=== PATIENT | female | born 1980 | race African-American/Black ===

== ENCOUNTER 2016-12-15 18:11 | Emergency (ER) | payer OTHER ==
[2016-12-15] MEDS ORDERED: KETOROLAC 30 MG/ML VIAL (J1885) As Ordered ONE (20:06)
[2016-12-15 20:12] LABS: BASO # 0.1 K/mm3 (0.0-0.2); BASO % 1.7 % (0.0-1.0); EOS # 0.4 K/mm3 (0.0-0.50); EOS % 4.6 % (0.0-3.0); LARGE UNSTAINED CELL # 0.2 K/mm3 (0.0-0.4); LARGE UNSTAINED CELL % 3.1 % (0.0-4.0); LYMPH # 3.1 K/mm3 (1.5-4.5); LYMPH % 36.1 % (24.0-44.0); MEAN CORPUSCULAR HEMOGLOBIN 28.1 pg (27.0-33.0); MEAN CORPUSCULAR HGB CONC 32.6 g/dl (32.0-36.5); MEAN CORPUSCULAR VOLUME 86.2 fl (80.0-96.0); MONO # 0.6 K/mm3 (0.0-0.8); MONO % 8.1 % (0.0-5.0); NEUTROPHILS # 3.7 K/mm3 (1.8-7.7); NEUTROPHILS % 46.4 % (36.0-66.0); PLATELET COUNT, AUTOMATED 319 k/mm3 (150-450); RED CELL DISTRIBUTION WIDTH 13.8 % (11.5-14.5); WHITE BLOOD COUNT 7.9 K/mm3 (4.0-10.0)
[2016-12-15 20:39] LABS: ALBUMIN/GLOBULIN RATIO 1.03 (1.00-1.93); ALKALINE PHOSPHATASE 97 U/L (45-117); ALT/SGPT 14 U/L (12-78); AMYLASE 91 U/L (25-115); ANION GAP 7 MEQ/L (8-16); AST/SGOT 16 U/L (15-37); BILIRUBIN,DIRECT < 0.1 MG/DL (0.0-0.2); BILIRUBIN,TOTAL 0.2 MG/DL (0.2-1.0); BLOOD UREA NITROGEN 14 MG/DL (7-18); CALCIUM LEVEL 9.4 MG/DL (8.5-10.1); CARBON DIOXIDE LEVEL 28 MEQ/L (21-32); CHLORIDE LEVEL 103 MEQ/L (98-107); GLOMERULAR FILTRATION RATE > 60.0 (>60); GLUCOSE, FASTING 86 MG/DL (70-105); POTASSIUM SERUM 3.9 MEQ/L (3.5-5.1); SODIUM LEVEL 138 MEQ/L (136-145); TOTAL PROTEIN 7.9 GM/DL (6.4-8.2)
[2016-12-15] MEDS ORDERED: ISOVUE-370 76% 100ML VIAL (Q9967) As Ordered ONE (20:46)
--- NOTE | 2016-12-15 21:10 | REPUSA ---
CT of the abdomen and pelvis with contrast Clinical statement: Pain. Technique: Multiple axial CT images were obtained from the base of the lungs through the floor of the pelvis utilizing 5 mm axial slices after administration of nonionic intravenous contrast. Coronal an d sagittal reconstructions were also obtained. No comparison is available. Findings: Chest: The visualized lung bases are clear. Abdomen: The liver, spleen, pancreas, kidneys, gallbladder, and adrenal glands are unremarkable. The aorta is within normal limits. There is no evidence of abdominal lymphadenopathy or ascites. Pelvis: The bowel is unremarkable, with no obstructive or inflammatory changes. The appendix is garrison l. The urinary bladder is within normal limits. The other pelvic structures appear grossly intact. Th ere is no evidence of pelvic lymphadenopathy or ascites. Bones: There are no suspicious osseous abnormalities seen. Impression: Unremarkable CT examination of the abdomen and pelvis.
[2016-12-15] MEDS ORDERED: traMADol 50 MG TAB As Ordered ONE (22:07)
--- NOTE | 2016-12-15 22:20 | EDDOCDS ---
Physician Documentation [facility] Name: Prerna Mccain Age: 36 yrs Sex: Female : 1980 Arrival Date: 12/15/2016 Time: 18:11 Bed I4 / M4 Private MD: Other - Complete Info On Cds Disposition: 12/15/16 22:02 Discharged to Home/Self Care. Impression: Lower abdominal pain, unspecified. - Condition is Stable. - Discharge Instructions: Abdominal Pain, Adult. - Prescriptions for Tramadol 50 mg Oral Tablet - take 1 tablet by ORAL route 4 times per day As needed MDD: 4 tabs; 16 tablet. - Medication Reconciliation, Local Pharmacy Hours form. - Follow up: mEelina Coulter [facility]; When: 2 - 3 days; Reason: Recheck today's complaints, Continuance of care. - Problem is new. - Symptoms have improved. - Notes: USE MEDICATION INSTRUTCED, FOLLOW UP WITH [facility] TOMORROW, RETURN TO THE ER IF THE SYMPTOMS WORSEN OR BECOME CONCERNING Historical: - Allergies: no known allergies; - Home Meds: 1. Protonix 40 mg Oral grps 2. Protonix 40 mg Oral TbEC 1 tab once daily - PMHx: gallbladder disease; - PSHx: none; - Social history: Smoking status: Patient/guardian denies using No barriers to communication noted, The patient speaks fluent [place]. - Family history: Not pertinent. - : The pt / caregiver states he / she is not on anticoagulants. Home medication list is obtained from the patient. - Exposure Risk Screening:: None identified. 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 (152.40 cm) (R); Pain 8/10; 22:16 BP 100 / 64; Pulse 84; Resp 18; Temp 97.9(O); Pulse Ox 98% on R/A; Pain 3/10; kb5 18:13 Body Mass Index 25.78 (59.87 kg, 152.40 cm) gr2 MDM: 18:59 UCG by Nursing ordered. ck7 19:00 Urine Culture Ordered. EDMS 19:00 UA Ordered. EDMS 19:37 UA Reviewed. ck7 19:38 Undress patient appropriately for examination ordered. ck7 19:38 IV Saline Lock ordered. ck7 19:38 NS 0.9% 1000 ml IV at bolus once ordered. ck7 19:39 Amylase Ordered. EDMS 19:39 Basic Metabolic Profile Ordered. EDMS 19:39 CBC with Diff Ordered. EDMS 19:39 Lipase Ordered. EDMS 19:39 Liver Profile Ordered. EDMS 19:40 NOTHING BY MOUTH+DIET ordered. EDMS 19:43 Financial registration complete. gjb 19:45 CT ABD & PELVIS: IV Contrast Only Ordered. EDMS 19:46 [facility] Payment Agreement was scanned into [employer] and attached to record. gjb 19:56 ketorolac 30 mg IVP once ordered. ck7 20:48 Basic Metabolic Profile Reviewed. ck7 20:48 CBC with Diff Reviewed. ck7 20:48 Amylase Reviewed. ck7 20:48 Lipase Reviewed. ck7 20:48 Liver Profile Reviewed. ck7 21:47 CT ABD & PELVIS: IV Contrast Only Reviewed. ck7 22:03 traMADol 50mg- 4 pack 1 packets PO Per package directions; Dispense with patient. Take ck7 per package instructions. ordered. Point of Care Testing: Urine : 19:13 hCG Reading: Negative; Control Reading: Positive; ar3 Ranges: Administered Medications: 20:04 Drug: NS 0.9% 1000 ml [sodium chloride 0.9 % intravenous solution] Route: IV; Rate: jmb bolus; Site: left antecubital; 20:09 Drug: ketorolac 30 mg [ketorolac 30 mg/mL (1 mL) injection solution (1 mL)] Route: IVP; jmb Site: left antecubital; Signatures: [facility] Neris Brito RN RN dls Kwaczala, Christopher, RPA-C RPA-CckSrini Da Silva RN RN jmb Beck, Gabriela gjb The chart was reviewed and I authenticate all verbal orders and agree with the evaluation and treatment provided.Attachments: 19:46 [facility] Payment Agreement gj MTDD
--- NOTE | 2016-12-15 22:20 | EDDOCDS ---
Nurse's Notes [facility] Name: Prerna Mccain Age: 36 yrs Sex: Female : 1980 Arrival Date: 12/15/2016 Time: 18:11 Bed I4 / M4 Private MD: Other - Complete Info On Cds Diagnosis: Lower abdominal pain, unspecified Presentation: 12/15 18:12 Presenting complaint:. dls 18:15 Presenting complaint: Patient states: pt presents with c/o lower abdominal pain lower dls back pain urinary frequency and breasts are tingling. Risk factors: the patient reports no vaginal bleeding. Adult Sepsis Screening: The patient does not have new or worsening altered mentation. Patient's respiratory rate is less than 22. Systolic blood pressure is greater than 100. Patient has a qSOFA score of 0- Negative Sepsis Screen. Suicide/Homicide risk assessment- the patient denies having any suicidal and/or homicidal ideations and does not present with any other emotional, behavioral or mental health complaints. 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 Transition of care: patient was not received from another setting of care. 18:15 Acuity: LI Level 3 dls 18:15 Method Of Arrival: Walkin/Carried/Asstd dls Triage Assessment: 18:18 General: Appears slender, uncomfortable, Behavior is cooperative. Pain: Pain currently dls is 7 out of 10 on a pain scale. HIV screening NA for this visit Offered previously. GI: Reports lower abdominal pain, nausea. 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 Protonix 40 mg Oral grps 2. Protonix 40 mg Oral TbEC 1 tab once daily - PMHx: gallbladder disease; - PSHx: none; - Social history: Smoking status: Patient/guardian denies using No barriers to communication noted, The patient speaks fluent [place]ian. - Family history: Not pertinent. - : The pt / caregiver states he / she is not on anticoagulants. Home medication list is obtained from the patient. - Exposure Risk Screening:: None identified. Screenin:04 Screening information is obtained from the patient. Fall risk: No risks identified. jmb Assistance ADL's: requires no assistance with activities of daily living. Abuse/DV Screen: The patient / caregiver reports he/she is: not in a situation that causes fear, pain or injury. Nutritional screening: No deficits noted. home support is adequate. 22:17 Advance Directives: Currently, there is no health care proxy. There is no active DNR jmb order. There is no living will. There is no Power of Train Operator. Assessment: 20:04 General: Appears in no apparent distress, comfortable, Behavior is appropriate for age, jmb cooperative. Pain: Location: abdomen Pain currently is 7 out of 10 on a pain scale. Neurological: Level of Consciousness is awake, alert, obeys commands, Oriented to person, place, time, Data Quality Consultant are equal bilaterally Speech is normal, Facial symmetry appears normal, Facial symmetry: tongue is midline. Cardiovascular: Capillary refill < 3 seconds Heart tones S1 S2 present Pulses are all present. Rhythm is regular. Respiratory: Airway is patent Respiratory effort is even, unlabored, Respiratory pattern is regular, symmetrical, Breath sounds are clear bilaterally. GI: Abdomen is non- distended Bowel sounds present X 4 quads. Abd is soft X 4 quads. Derm: Skin is normal. Musculoskeletal: Range of motion intact in all extremities. 21:26 General: Appears in no apparent distress, comfortable, Behavior is appropriate for age, jmb cooperative. Neurological: Level of Consciousness is awake, alert, obeys commands, Oriented to person, place, time. Respiratory: Airway is patent Respiratory effort is even, unlabored, Respiratory pattern is regular, symmetrical. 22:17 General: Patient instructed on discharge instructions. Patient asked if there were any jmb questions regarding discharge, patient stated no. IV discontinued per hospital policy. Patient signed discharge instructions. Patient discharged in stable condition. . Vital Signs: 18:13 BP 111 / 76; Pulse 89; Resp 18 S; Temp 98.6(O); Pulse Ox 100% on R/A; Weight 59.87 kg gr2 (R); Height 60 in. (152.40 cm) (R); Pain 8/10; 22:16 BP 100 / 64; Pulse 84; Resp 18; Temp 97.9(O); Pulse Ox 98% on R/A; Pain 3/10; kb5 18:13 Body Mass Index 25.78 (59.87 kg, 152.40 cm) gr2 Vitals: 18:13 Log In Time: December 15, 2016 at 18:13. gr2 ED Course: 18:12 Patient visited by Bertha Grant. gr2 18:12 Other - Complete Info On Cds is Private Physician. gr2 18:12 Patient moved to Waiting gr2 18:14 Patient visited by Bertha Grant. gr2 18:14 Patient moved to Pre RCE gr2 18:17 Triage Initiated dls 18:31 Patient moved to Triage 1 ms18 18:53 Pritesh Dunn RPA-C is PHCP. ck7 18:53 Cuate Mendoza MD is Attending Physician. ck7 18:53 Patient visited by Pritesh Dunn RPA-C. ck7 19:07 Patient moved to TR3 ar3 19:07 Urine Culture Sent. ar3 19:07 UA Sent. ar3 19:13 Patient visited by Narda Mixon PCA. ar3 19:38 Patient moved to I4 / M4 ms18 19:43 Patient visited by Pritesh Dunn RPA-C. ck7 19:46 [facility] Payment Agreement was scanned into [employer] and attached to record. gjb 20:04 The patient / caregiver is instructed regarding the plan of care and ED course. jmb 20:04 Amylase Sent. jmb 20:04 CBC with Diff Sent. jmb 20:04 Basic Metabolic Profile Sent. jmb 20:04 Lipase Sent. jmb 20:04 Liver Profile Sent. jmb 20:04 Inserted saline lock: 20 gauge in left antecubital area and blood collected. The jmb patient tolerated the procedure well. Labs drawn. (by ED staff). Sent per order to lab. Urine collected. Clean catch specimen. 20:06 Patient visited by Srini Michel RN. jmb 20:41 Patient visited by Pritesh Dunn RPA-C. ck7 20:[address] jmb 20:56 Patient moved to I4 / M4 jmb 21:26 Patient visited by Srini Michel RN. jmb 21:41 CT ABD & PELVIS: IV Contrast Only Returned. EDMS 21:59 Patient visited by Pritesh Dunn RPA-C. ck7 22:02 Emelina Coulter [facility] is Referral Physician. ck7 22:17 Patient visited by Jc Borja PCA. kb5 22:17 Discontinued lock intact, bleeding controlled, pressure dressing applied, No jmb redness/swelling at site. No procedures done that require assistance. Administered Medications: 20:04 Drug: NS 0.9% 1000 ml [sodium chloride 0.9 % intravenous solution] Route: IV; Rate: jmb bolus; Site: left antecubital; 20:09 Drug: ketorolac 30 mg [ketorolac 30 mg/mL (1 mL) injection solution (1 mL)] Route: IVP; jmb Site: left antecubital; Point of Care Testing: Urine : 19:13 hCG Reading: Negative; Control Reading: Positive; ar3 Ranges: Order Results: Lab Order: UA; SPEC'M 12/15/16 19:07 Test: APPEARANCE, URINE; Value: CLEAR; Range: CLEAR; Status: F Test: COLOR, URINE; Value: YELLOW; Range: YELLOW; Status: F Test: PH,URINE; Value: 5.0; Range: 5.0-9.0; Units: UNITS; Status: F Test: SPECIFIC GRAVITY URINE AUTO; Value: 1.015; Range: 1.002-1.035; Status: F Test: PROTEIN, URINE AUTO; Value: NEGATIVE; Range: NEGATIVE; Units: mg/dL; Status: F Test: GLUCOSE, URINE (UA) AUTO; Value: NEGATIVE; Range: NEGATIVE; Units: mg/dL; Status: F Test: KETONE, URINE AUTO; Value: NEGATIVE; Range: NEGATIVE; Units: mg/dL; Status: F Test: UROBILINOGEN, URINE AUTO; Value: 0.2; Range: 0.0-2.0; Units: mg/dL; Status: F Test: BILIRUBIN, URINE AUTO; Value: NEGATIVE; Range: NEGATIVE; Status: F Test: NITRITE, URINE AUTO; Value: NEGATIVE; Range: NEGATIVE; Status: F Test: LEUKOCYTE ESTERASE, URINE AUTO; Value: NEGATIVE; Range: NEGATIVE; Status: F Test: BLOOD, URINE BLOOD; Value: NEGATIVE; Range: NEGATIVE; Status: F Test: WBC, URINE AUTO; Value: 0; Range: 0-3; Units: /HPF; Status: F Test: RBC, URINE AUTO; Value: 3; Range: 0-3; Units: /HPF; Status: F Test: BACTERIA, URINE AUTO; Value: 1+; Range: NEGATIVE; Abnormal: Above high normal; Status: F Test: SQUAMOUS EPITHELIAL CELL UR AU; Value: 0; Range: 0-6; Units: /HPF; Status: F Test: MUCUS, URINE; Value: SMALL; Range: NEGATIVE; Status: F Test: HYALINE CAST, URINE AUTO; Value: 0; Range: 0-1; Units: /LPF; Status: F Lab Order: Amylase; SPEC'M 12/15/16 19:57 Test: AMYLASE; Value: 91; Range: 25-115; Units: U/L; Status: F Lab Order: Basic Metabolic Profile; SPEC'M 12/15/16 19:57 Test: GLUCOSE, FASTING; Value: 86; Range: 70-105; Units: MG/DL; Status: F Test: BLOOD UREA NITROGEN; Value: 14; Range: 7-18; Units: MG/DL; Status: F Test: CREATININE FOR GFR; Value: 0.90; Range: 0.55-1.02; Units: MG/DL; Status: F Test: GLOMERULAR FILTRATION RATE; Value: > 60.0; Range: >60; Status: F Test: SODIUM LEVEL; Value: 138; Range: 136-145; Units: MEQ/L; Status: F Test: POTASSIUM SERUM; Value: 3.9; Range: 3.5-5.1; Units: MEQ/L; Status: F Test: CHLORIDE LEVEL; Value: 103; Range: 98-107; Units: MEQ/L; Status: F Test: CARBON DIOXIDE LEVEL; Value: 28; Range: 21-32; Units: MEQ/L; Status: F Test: ANION GAP; Value: 7; Range: 8-16; Abnormal: Below low normal; Units: MEQ/L; Status: F Test: CALCIUM LEVEL; Value: 9.4; Range: 8.5-10.1; Units: MG/DL; Status: F Test Note: ; Units are mL/min/1.73 m2 Chronic Kidney Disease Staging per NKF: Stage I & II GFR >=60 Normal to Mildly Decreased Stage III GFR 30-59 Moderately Decreased Stage IV GFR 15-29 Severely Decreased Stage V GFR <15 Very Little GFR Left ESRD GFR <15 on [employer] Lab Order: CBC with Diff; SPEC'M 12/15/16 19:57 Test: WHITE BLOOD COUNT; Value: 7.9; Range: 4.0-10.0; Units: K/mm3; Status: F Test: RED BLOOD COUNT; Value: 4.68; Range: 4.00-5.40; Units: M/mm3; Status: F Test: HEMOGLOBIN; Value: 13.2; Range: 12.0-16.0; Units: g/dl; Status: F Test: HEMATOCRIT; Value: 40.3; Range: 36.0-47.0; Units: %; Status: F Test: MEAN CORPUSCULAR VOLUME; Value: 86.2; Range: 80.0-96.0; Units: fl; Status: F Test: MEAN CORPUSCULAR HEMOGLOBIN; Value: 28.1; Range: 27.0-33.0; Units: pg; Status: F Test: MEAN CORPUSCULAR HGB CONC; Value: 32.6; Range: 32.0-36.5; Units: g/dl; Status: F Test: RED CELL DISTRIBUTION WIDTH; Value: 13.8; Range: 11.5-14.5; Units: %; Status: F Test: PLATELET COUNT, AUTOMATED; Value: 319; Range: 150-450; Units: k/mm3; Status: F Test: NEUTROPHILS %; Value: 46.4; Range: 36.0-66.0; Units: %; Status: F Test: LYMPH %; Value: 36.1; Range: 24.0-44.0; Units: %; Status: F Test: MONO %; Value: 8.1; Range: 0.0-5.0; Abnormal: Above high normal; Units: %; Status: F Test: EOS %; Value: 4.6; Range: 0.0-3.0; Abnormal: Above high normal; Units: %; Status: F Test: BASO %; Value: 1.7; Range: 0.0-1.0; Abnormal: Above high normal; Units: %; Status: F Test: LARGE UNSTAINED CELL %; Value: 3.1; Range: 0.0-4.0; Units: %; Status: F Test: NEUTROPHILS #; Value: 3.7; Range: 1.8-7.7; Units: K/mm3; Status: F Test: LYMPH #; Value: 3.1; Range: 1.5-4.5; Units: K/mm3; Status: F Test: MONO #; Value: 0.6; Range: 0.0-0.8; Units: K/mm3; Status: F Test: EOS #; Value: 0.4; Range: 0.0-0.50; Units: K/mm3; Status: F Test: BASO #; Value: 0.1; Range: 0.0-0.2; Units: K/mm3; Status: F Test: LARGE UNSTAINED CELL #; Value: 0.2; Range: 0.0-0.4; Units: K/mm3; Status: F Lab Order: Lipase; SPEC'M 12/15/16 19:57 Test: LIPASE; Value: 201; Range: 73-393; Units: U/L; Status: F Lab Order: Liver Profile; SPEC'M 12/15/16 19:57 Test: AST/SGOT; Value: 16; Range: 15-37; Units: U/L; Status: F Test: ALT/SGPT; Value: 14; Range: 12-78; Units: U/L; Status: F Test: ALKALINE PHOSPHATASE; Value: 97; Range: 45-117; Units: U/L; Status: F Test: BILIRUBIN,TOTAL; Value: 0.2; Range: 0.2-1.0; Units: MG/DL; Status: F Test: BILIRUBIN,DIRECT; Value: < 0.1; Range: 0.0-0.2; Units: MG/DL; Status: F Test: TOTAL PROTEIN; Value: 7.9; Range: 6.4-8.2; Units: GM/DL; Status: F Test: ALBUMIN; Value: 4.0; Range: 3.2-5.2; Units: GM/DL; Status: F Test: ALBUMIN/GLOBULIN RATIO; Value: 1.03; Range: 1.00-1.93; Status: F Radiology Order: CT ABD & PELVIS: IV Contrast Only Test: CT ABD & PELVIS: IV Contrast Only REASON FOR EXAMINATION: Abdomen Pain; ; CT of the abdomen and pelvis with contrast; Clinical statement: Pain.; Technique: Multiple axial CT images were obtained from the base of the lungs through the floor of the; pelvis utilizing 5 mm axial slices after administration of nonionic intravenous contrast. Coronal an; d sagittal reconstructions were also obtained.; No comparison is available.; Findings:; Chest: The visualized lung bases are clear.; Abdomen: The liver, spleen, pancreas, kidneys, gallbladder, and adrenal glands are unremarkable. The; aorta is within normal limits. There is no evidence of abdominal lymphadenopathy or ascites.; Pelvis: The bowel is unremarkable, with no obstructive or inflammatory changes. The appendix is garrison; l. The urinary bladder is within normal limits. The other pelvic structures appear grossly intact. Th; ere is no evidence of pelvic lymphadenopathy or ascites.; Bones: There are no suspicious osseous abnormalities seen.; Impression: Unremarkable CT examination of the abdomen and pelvis.; ; Outcome: 22:02 Discharge ordered by Provider. ck7 22:17 Discharge Assessment: Patient awake, alert and oriented x 3. No cognitive and/or jmb functional deficits noted. Patient verbalized understanding of disposition instructions. Patient awake and alert. obeys commands, Oriented to person, place and time. Patient verbalized understanding of disposition instructions. Patient has no functional deficits. patient administered narcotics - no. The following High Risk Discharge criteria are identified: None. Discharged to home ambulatory. Condition: stable Condition: improved. Discharge instructions given to patient, Instructed on discharge instructions, follow up and referral plans. medication usage, Demonstrated understanding of instructions, medications, Pt was receptive of discharge instructions/ teaching. Prescriptions given X 1. CT Study completed. Property sent home with patient. 22:19 Patient left the ED. liz Signatures: Dispatcher [employer] EDMS Neris Brito, Jc Castle RN, VIDEO PHOTOGRAPHER VIDEO PHOTOGRAPHER kb5 Narda Mixon, VIDEO PHOTOGRAPHER VIDEO PHOTOGRAPHER ar3 Pritesh Dunn, RPA-C [id number] Bertha Grant gr2 Srini Michel RN RN jmb Smith, Mallory, RN RN ms18 Enriqueta Abdullahi MTDD
--- NOTE | 2016-12-17 23:20 | EDDOCDS ---
Nurse's Notes [facility] Name: Prerna Mccain Age: 36 yrs Sex: Female : 1980 Arrival Date: 12/15/2016 Time: 18:11 Bed I4 / M4 Private MD: Other - Complete Info On Cds Diagnosis: Lower abdominal pain, unspecified Presentation: 12/15 18:12 Presenting complaint:. dls 18:15 Presenting complaint: Patient states: pt presents with c/o lower abdominal pain lower dls back pain urinary frequency and breasts are tingling. Risk factors: the patient reports no vaginal bleeding. Adult Sepsis Screening: The patient does not have new or worsening altered mentation. Patient's respiratory rate is less than 22. Systolic blood pressure is greater than 100. Patient has a qSOFA score of 0- Negative Sepsis Screen. Suicide/Homicide risk assessment- the patient denies having any suicidal and/or homicidal ideations and does not present with any other emotional, behavioral or mental health complaints. 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 Transition of care: patient was not received from another setting of care. 18:15 Acuity: LI Level 3 dls 18:15 Method Of Arrival: Walkin/Carried/Asstd dls Triage Assessment: 18:18 General: Appears slender, uncomfortable, Behavior is cooperative. Pain: Pain currently dls is 7 out of 10 on a pain scale. HIV screening NA for this visit Offered previously. GI: Reports lower abdominal pain, nausea. 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 Protonix 40 mg Oral grps 2. Protonix 40 mg Oral TbEC 1 tab once daily - PMHx: gallbladder disease; - PSHx: none; - Social history: Smoking status: Patient/guardian denies using No barriers to communication noted, The patient speaks fluent Mauritanian. - Family history: Not pertinent. - : The pt / caregiver states he / she is not on anticoagulants. Home medication list is obtained from the patient. - Exposure Risk Screening:: None identified. Screenin:04 Screening information is obtained from the patient. Fall risk: No risks identified. jmb Assistance ADL's: requires no assistance with activities of daily living. Abuse/DV Screen: The patient / caregiver reports he/she is: not in a situation that causes fear, pain or injury. Nutritional screening: No deficits noted. home support is adequate. 22:17 Advance Directives: Currently, there is no health care proxy. There is no active DNR jmb order. There is no living will. There is no Power of Client Support Analyst. Assessment: 20:04 General: Appears in no apparent distress, comfortable, Behavior is appropriate for age, jmb cooperative. Pain: Location: abdomen Pain currently is 7 out of 10 on a pain scale. Neurological: Level of Consciousness is awake, alert, obeys commands, Oriented to person, place, time, Music Intern are equal bilaterally Speech is normal, Facial symmetry appears normal, Facial symmetry: tongue is midline. Cardiovascular: Capillary refill < 3 seconds Heart tones S1 S2 present Pulses are all present. Rhythm is regular. Respiratory: Airway is patent Respiratory effort is even, unlabored, Respiratory pattern is regular, symmetrical, Breath sounds are clear bilaterally. GI: Abdomen is non- distended Bowel sounds present X 4 quads. Abd is soft X 4 quads. Derm: Skin is normal. Musculoskeletal: Range of motion intact in all extremities. 21:26 General: Appears in no apparent distress, comfortable, Behavior is appropriate for age, jmb cooperative. Neurological: Level of Consciousness is awake, alert, obeys commands, Oriented to person, place, time. Respiratory: Airway is patent Respiratory effort is even, unlabored, Respiratory pattern is regular, symmetrical. 22:17 General: Patient instructed on discharge instructions. Patient asked if there were any jmb questions regarding discharge, patient stated no. IV discontinued per hospital policy. Patient signed discharge instructions. Patient discharged in stable condition. . Vital Signs: 18:13 BP 111 / 76; Pulse 89; Resp 18 S; Temp 98.6(O); Pulse Ox 100% on R/A; Weight 59.87 kg gr2 (R); Height 60 in. (152.40 cm) (R); Pain 8/10; 22:16 BP 100 / 64; Pulse 84; Resp 18; Temp 97.9(O); Pulse Ox 98% on R/A; Pain 3/10; kb5 18:13 Body Mass Index 25.78 (59.87 kg, 152.40 cm) gr2 Vitals: 18:13 Log In Time: December 15, 2016 at 18:13. gr2 ED Course: 18:12 Patient visited by Bertha Grant. gr2 18:12 Other - Complete Info On Cds is Private Physician. gr2 18:12 Patient moved to Waiting gr2 18:14 Patient visited by Bertha Grant. gr2 18:14 Patient moved to Pre RCE gr2 18:17 Triage Initiated dls 18:31 Patient moved to Triage 1 ms18 18:53 Pritesh Dunn RPA-C is PHCP. ck7 18:53 Cuate Mendoza MD is Attending Physician. ck7 18:53 Patient visited by Pritesh Dunn RPA-C. ck7 19:07 Patient moved to TR3 ar3 19:07 Urine Culture Sent. ar3 19:07 UA Sent. ar3 19:13 Patient visited by Narda Mixon PCA. ar3 19:38 Patient moved to I4 / M4 ms18 19:43 Patient visited by Pritesh Dunn RPA-C. ck7 19:46 [facility] Payment Agreement was scanned into [employer] and attached to record. gjb 20:04 The patient / caregiver is instructed regarding the plan of care and ED course. jmb 20:04 Amylase Sent. jmb 20:04 CBC with Diff Sent. jmb 20:04 Basic Metabolic Profile Sent. jmb 20:04 Lipase Sent. jmb 20:04 Liver Profile Sent. jmb 20:04 Inserted saline lock: 20 gauge in left antecubital area and blood collected. The jmb patient tolerated the procedure well. Labs drawn. (by ED staff). Sent per order to lab. Urine collected. Clean catch specimen. 20:06 Patient visited by Srini Michel RN. jmb 20:41 Patient visited by Pritesh Dunn RPA-C. ck7 20:[address] jmb 20:56 Patient moved to I4 / M4 jmb 21:26 Patient visited by Srini Michel RN. jmb 21:41 CT ABD & PELVIS: IV Contrast Only Returned. EDMS 21:59 Patient visited by Pritesh Dunn RPA-C. ck7 22:02 Emelina Coulter [facility] is Referral Physician. ck7 22:17 Patient visited by Jc Borja PCA. kb5 22:17 Discontinued lock intact, bleeding controlled, pressure dressing applied, No jmb redness/swelling at site. No procedures done that require assistance. 12/16 09:41 T-Sheet-- Draft Copy was scanned into [employer] and attached to record. gb 09:41 Radiology Report was scanned into Voltari and attached to record. gb Administered Medications: 12/15 20:04 Drug: NS 0.9% 1000 ml [sodium chloride 0.9 % intravenous solution] Route: IV; Rate: jmb bolus; Site: left antecubital; 20:09 Drug: ketorolac 30 mg [ketorolac 30 mg/mL (1 mL) injection solution (1 mL)] Route: IVP; jmb Site: left antecubital; Point of Care Testing: Urine : 19:13 hCG Reading: Negative; Control Reading: Positive; ar3 Ranges: Order Results: Lab Order: UA; SPEC'M 12/15/16 19:07 Test: APPEARANCE, URINE; Value: CLEAR; Range: CLEAR; Status: F Test: COLOR, URINE; Value: YELLOW; Range: YELLOW; Status: F Test: PH,URINE; Value: 5.0; Range: 5.0-9.0; Units: UNITS; Status: F Test: SPECIFIC GRAVITY URINE AUTO; Value: 1.015; Range: 1.002-1.035; Status: F Test: PROTEIN, URINE AUTO; Value: NEGATIVE; Range: NEGATIVE; Units: mg/dL; Status: F Test: GLUCOSE, URINE (UA) AUTO; Value: NEGATIVE; Range: NEGATIVE; Units: mg/dL; Status: F Test: KETONE, URINE AUTO; Value: NEGATIVE; Range: NEGATIVE; Units: mg/dL; Status: F Test: UROBILINOGEN, URINE AUTO; Value: 0.2; Range: 0.0-2.0; Units: mg/dL; Status: F Test: BILIRUBIN, URINE AUTO; Value: NEGATIVE; Range: NEGATIVE; Status: F Test: NITRITE, URINE AUTO; Value: NEGATIVE; Range: NEGATIVE; Status: F Test: LEUKOCYTE ESTERASE, URINE AUTO; Value: NEGATIVE; Range: NEGATIVE; Status: F Test: BLOOD, URINE BLOOD; Value: NEGATIVE; Range: NEGATIVE; Status: F Test: WBC, URINE AUTO; Value: 0; Range: 0-3; Units: /HPF; Status: F Test: RBC, URINE AUTO; Value: 3; Range: 0-3; Units: /HPF; Status: F Test: BACTERIA, URINE AUTO; Value: 1+; Range: NEGATIVE; Abnormal: Above high normal; Status: F Test: SQUAMOUS EPITHELIAL CELL UR AU; Value: 0; Range: 0-6; Units: /HPF; Status: F Test: MUCUS, URINE; Value: SMALL; Range: NEGATIVE; Status: F Test: HYALINE CAST, URINE AUTO; Value: 0; Range: 0-1; Units: /LPF; Status: F Lab Order: Urine Culture; [facility] 12/15/16 19:07 Test: URINE CULTURE; Value: <EXTERNAL COMMENT eCWMed> FULL REPORT IN LAB NOTES (eCW and Medent).; Status: F Test: URINE CULTURE; Value: URINE CULTURE RESULT NO GROWTH; Status: F Lab Order: Amylase; [facility] 12/15/16 19:57 Test: AMYLASE; Value: 91; Range: 25-115; Units: U/L; Status: F Lab Order: Basic Metabolic Profile; [facility] 12/15/16 19:57 Test: GLUCOSE, FASTING; Value: 86; Range: 70-105; Units: MG/DL; Status: F Test: BLOOD UREA NITROGEN; Value: 14; Range: 7-18; Units: MG/DL; Status: F Test: CREATININE FOR GFR; Value: 0.90; Range: 0.55-1.02; Units: MG/DL; Status: F Test: GLOMERULAR FILTRATION RATE; Value: > 60.0; Range: >60; Status: F Test: SODIUM LEVEL; Value: 138; Range: 136-145; Units: MEQ/L; Status: F Test: POTASSIUM SERUM; Value: 3.9; Range: 3.5-5.1; Units: MEQ/L; Status: F Test: CHLORIDE LEVEL; Value: 103; Range: 98-107; Units: MEQ/L; Status: F Test: CARBON DIOXIDE LEVEL; Value: 28; Range: 21-32; Units: MEQ/L; Status: F Test: ANION GAP; Value: 7; Range: 8-16; Abnormal: Below low normal; Units: MEQ/L; Status: F Test: CALCIUM LEVEL; Value: 9.4; Range: 8.5-10.1; Units: MG/DL; Status: F Test Note: ; Units are mL/min/1.73 m2 Chronic Kidney Disease Staging per NKF: Stage I & II GFR >=60 Normal to Mildly Decreased Stage III GFR 30-59 Moderately Decreased Stage IV GFR 15-29 Severely Decreased Stage V GFR <15 Very Little GFR Left ESRD GFR <15 on GEAR TECHNICIAN Lab Order: CBC with Diff; SPEC'M 12/15/16 19:57 Test: WHITE BLOOD COUNT; Value: 7.9; Range: 4.0-10.0; Units: K/mm3; Status: F Test: RED BLOOD COUNT; Value: 4.68; Range: 4.00-5.40; Units: M/mm3; Status: F Test: HEMOGLOBIN; Value: 13.2; Range: 12.0-16.0; Units: g/dl; Status: F Test: HEMATOCRIT; Value: 40.3; Range: 36.0-47.0; Units: %; Status: F Test: MEAN CORPUSCULAR VOLUME; Value: 86.2; Range: 80.0-96.0; Units: fl; Status: F Test: MEAN CORPUSCULAR HEMOGLOBIN; Value: 28.1; Range: 27.0-33.0; Units: pg; Status: F Test: MEAN CORPUSCULAR HGB CONC; Value: 32.6; Range: 32.0-36.5; Units: g/dl; Status: F Test: RED CELL DISTRIBUTION WIDTH; Value: 13.8; Range: 11.5-14.5; Units: %; Status: F Test: PLATELET COUNT, AUTOMATED; Value: 319; Range: 150-450; Units: k/mm3; Status: F Test: NEUTROPHILS %; Value: 46.4; Range: 36.0-66.0; Units: %; Status: F Test: LYMPH %; Value: 36.1; Range: 24.0-44.0; Units: %; Status: F Test: MONO %; Value: 8.1; Range: 0.0-5.0; Abnormal: Above high normal; Units: %; Status: F Test: EOS %; Value: 4.6; Range: 0.0-3.0; Abnormal: Above high normal; Units: %; Status: F Test: BASO %; Value: 1.7; Range: 0.0-1.0; Abnormal: Above high normal; Units: %; Status: F Test: LARGE UNSTAINED CELL %; Value: 3.1; Range: 0.0-4.0; Units: %; Status: F Test: NEUTROPHILS #; Value: 3.7; Range: 1.8-7.7; Units: K/mm3; Status: F Test: LYMPH #; Value: 3.1; Range: 1.5-4.5; Units: K/mm3; Status: F Test: MONO #; Value: 0.6; Range: 0.0-0.8; Units: K/mm3; Status: F Test: EOS #; Value: 0.4; Range: 0.0-0.50; Units: K/mm3; Status: F Test: BASO #; Value: 0.1; Range: 0.0-0.2; Units: K/mm3; Status: F Test: LARGE UNSTAINED CELL #; Value: 0.2; Range: 0.0-0.4; Units: K/mm3; Status: F Lab Order: Lipase; [facility] 12/15/16 19:57 Test: LIPASE; Value: 201; Range: 73-393; Units: U/L; Status: F Lab Order: Liver Profile; [facility] 12/15/16 19:57 Test: AST/SGOT; Value: 16; Range: 15-37; Units: U/L; Status: F Test: ALT/SGPT; Value: 14; Range: 12-78; Units: U/L; Status: F Test: ALKALINE PHOSPHATASE; Value: 97; Range: 45-117; Units: U/L; Status: F Test: BILIRUBIN,TOTAL; Value: 0.2; Range: 0.2-1.0; Units: MG/DL; Status: F Test: BILIRUBIN,DIRECT; Value: < 0.1; Range: 0.0-0.2; Units: MG/DL; Status: F Test: TOTAL PROTEIN; Value: 7.9; Range: 6.4-8.2; Units: GM/DL; Status: F Test: ALBUMIN; Value: 4.0; Range: 3.2-5.2; Units: GM/DL; Status: F Test: ALBUMIN/GLOBULIN RATIO; Value: 1.03; Range: 1.00-1.93; Status: F Radiology Order: CT ABD & PELVIS: IV Contrast Only Test: CT ABD & PELVIS: IV Contrast Only REASON FOR EXAMINATION: Abdomen Pain; ; CT of the abdomen and pelvis with contrast; Clinical statement: Pain.; Technique: Multiple axial CT images were obtained from the base of the lungs through the floor of the; pelvis utilizing 5 mm axial slices after administration of nonionic intravenous contrast. Coronal an; d sagittal reconstructions were also obtained.; No comparison is available.; Findings:; Chest: The visualized lung bases are clear.; Abdomen: The liver, spleen, pancreas, kidneys, gallbladder, and adrenal glands are unremarkable. The; aorta is within normal limits. There is no evidence of abdominal lymphadenopathy or ascites.; Pelvis: The bowel is unremarkable, with no obstructive or inflammatory changes. The appendix is garrison; l. The urinary bladder is within normal limits. The other pelvic structures appear grossly intact. Th; ere is no evidence of pelvic lymphadenopathy or ascites.; Bones: There are no suspicious osseous abnormalities seen.; Impression: Unremarkable CT examination of the abdomen and pelvis.; ; Outcome: 22:02 Discharge ordered by Provider. ck7 22:17 Discharge Assessment: Patient awake, alert and oriented x 3. No cognitive and/or jmb functional deficits noted. Patient verbalized understanding of disposition instructions. Patient awake and alert. obeys commands, Oriented to person, place and time. Patient verbalized understanding of disposition instructions. Patient has no functional deficits. patient administered narcotics - no. The following High Risk Discharge criteria are identified: None. Discharged to home ambulatory. Condition: stable Condition: improved. Discharge instructions given to patient, Instructed on discharge instructions, follow up and referral plans. medication usage, Demonstrated understanding of instructions, medications, Pt was receptive of discharge instructions/ teaching. Prescriptions given X 1. CT Study completed. Property sent home with patient. 22:19 Patient left the ED. jmb Signatures: Dispatcher [employer] EDMS Neris Brito RN RN Pebbles Smallwood, Reg Reg gb Jc Borja, LOGISTICS INTERN LOGISTICS INTERN kb5 Narda Mixon, LOGISTICS INTERN LOGISTICS INTERN ar3 Pritesh Dunn, RPA-C RPA-Cck7 Bertha Grant gr2 Srini Michel,RN RN jmb Maryanne De La Garza RN RN [id number] Enriqueta Abdullahi Chart Complete MTDD
--- NOTE | 2016-12-17 23:20 | EDDOCDS ---
Physician Documentation [facility] Name: Prerna Mccain Age: 36 yrs Sex: Female : 1980 Arrival Date: 12/15/2016 Time: 18:11 Bed I4 / M4 Private MD: Other - Complete Info On Cds Disposition: 12/15/16 22:02 Discharged to Home/Self Care. Impression: Lower abdominal pain, unspecified. - Condition is Stable. - Discharge Instructions: Abdominal Pain, Adult. - Prescriptions for Tramadol 50 mg Oral Tablet - take 1 tablet by ORAL route 4 times per day As needed MDD: 4 tabs; 16 tablet. - Medication Reconciliation, Local Pharmacy Hours form. - Follow up: Emelina Coulter [facility]; When: 2 - 3 days; Reason: Recheck today's complaints, Continuance of care. - Problem is new. - Symptoms have improved. - Notes: USE MEDICATION INSTRUTCED, FOLLOW UP WITH [facility] TOMORROW, RETURN TO THE ER IF THE SYMPTOMS WORSEN OR BECOME CONCERNING Historical: - Allergies: no known allergies; - Home Meds: 1. Protonix 40 mg Oral grps 2. Protonix 40 mg Oral TbEC 1 tab once daily - PMHx: gallbladder disease; - PSHx: none; - Social history: Smoking status: Patient/guardian denies using No barriers to communication noted, The patient speaks fluent German. - Family history: Not pertinent. - : The pt / caregiver states he / she is not on anticoagulants. Home medication list is obtained from the patient. - Exposure Risk Screening:: None identified. 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 (152.40 cm) (R); Pain 8/10; 22:16 BP 100 / 64; Pulse 84; Resp 18; Temp 97.9(O); Pulse Ox 98% on R/A; Pain 3/10; kb5 18:13 Body Mass Index 25.78 (59.87 kg, 152.40 cm) gr2 MDM: 18:59 UCG by Nursing ordered. ck7 19:00 Urine Culture Ordered. EDMS 19:00 UA Ordered. EDMS 19:37 UA Reviewed. ck7 19:38 Undress patient appropriately for examination ordered. ck7 19:38 IV Saline Lock ordered. ck7 19:38 NS 0.9% 1000 ml IV at bolus once ordered. ck7 19:39 Amylase Ordered. EDMS 19:39 Basic Metabolic Profile Ordered. EDMS 19:39 CBC with Diff Ordered. EDMS 19:39 Lipase Ordered. EDMS 19:39 Liver Profile Ordered. EDMS 19:40 NOTHING BY MOUTH+DIET ordered. EDMS 19:43 Financial registration complete. gjb 19:45 CT ABD & PELVIS: IV Contrast Only Ordered. EDMS 19:46 [facility] Payment Agreement was scanned into [employer] and attached to record. gjb 19:56 ketorolac 30 mg IVP once ordered. ck7 20:48 Basic Metabolic Profile Reviewed. ck7 20:48 CBC with Diff Reviewed. ck7 20:48 Amylase Reviewed. ck7 20:48 Lipase Reviewed. ck7 20:48 Liver Profile Reviewed. ck7 21:47 CT ABD & PELVIS: IV Contrast Only Reviewed. ck7 22:03 traMADol 50mg- 4 pack 1 packets PO Per package directions; Dispense with patient. Take ck7 per package instructions. ordered. 12/16 09:41 T-Sheet-- Draft Copy was scanned into [employer] and attached to record. 09:41 Radiology Report was scanned into [employer] and attached to record. Point of Care Testing: Urine : 12/15 19:13 hCG Reading: Negative; Control Reading: Positive; ar3 Ranges: Administered Medications: 20:04 Drug: NS 0.9% 1000 ml [sodium chloride 0.9 % intravenous solution] Route: IV; Rate: jmb bolus; Site: left antecubital; 20:09 Drug: ketorolac 30 mg [ketorolac 30 mg/mL (1 mL) injection solution (1 mL)] Route: IVP; jmb Site: left antecubital; Signatures: Dispatcher [employer] Neris Neri, Pebbles Andre RN, Reg Reg gb Pritesh Dunn, CODY-C RPA-Cck7 Srini Michel RN RN jmb Beck, Gabriela gjb The chart was reviewed and I authenticate all verbal orders and agree with the evaluation and treatment provided.Attachments: 19:46 [facility] Payment Agreement [email or web address] 12/16 09:41 T-Sheet-- Draft Copy gb Chart Complete MTDD
--- NOTE | 2016-12-17 23:20 | EDDOCDS ---
Physician Documentation [facility] Name: Prerna Mccain Age: 36 yrs Sex: Female : 1980 Arrival Date: 12/15/2016 Time: 18:11 Bed I4 / M4 Private MD: Other - Complete Info On Cds Disposition: 12/15/16 22:02 Discharged to Home/Self Care. Impression: Lower abdominal pain, unspecified. - Condition is Stable. - Discharge Instructions: Abdominal Pain, Adult. - Prescriptions for Tramadol 50 mg Oral Tablet - take 1 tablet by ORAL route 4 times per day As needed MDD: 4 tabs; 16 tablet. - Medication Reconciliation, Local Pharmacy Hours form. - Follow up: Emelina Coulter [facility]; When: 2 - 3 days; Reason: Recheck today's complaints, Continuance of care. - Problem is new. - Symptoms have improved. - Notes: USE MEDICATION INSTRUTCED, FOLLOW UP WITH [facility] TOMORROW, RETURN TO THE ER IF THE SYMPTOMS WORSEN OR BECOME CONCERNING Historical: - Allergies: no known allergies; - Home Meds: 1. Protonix 40 mg Oral grps 2. Protonix 40 mg Oral TbEC 1 tab once daily - PMHx: gallbladder disease; - PSHx: none; - Social history: Smoking status: Patient/guardian denies using No barriers to communication noted, The patient speaks fluent Portuguese. - Family history: Not pertinent. - : The pt / caregiver states he / she is not on anticoagulants. Home medication list is obtained from the patient. - Exposure Risk Screening:: None identified. 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 (152.40 cm) (R); Pain 8/10; 22:16 BP 100 / 64; Pulse 84; Resp 18; Temp 97.9(O); Pulse Ox 98% on R/A; Pain 3/10; kb5 18:13 Body Mass Index 25.78 (59.87 kg, 152.40 cm) gr2 MDM: 18:59 UCG by Nursing ordered. ck7 19:00 Urine Culture Ordered. EDMS 19:00 UA Ordered. EDMS 19:37 UA Reviewed. ck7 19:38 Undress patient appropriately for examination ordered. ck7 19:38 IV Saline Lock ordered. ck7 19:38 NS 0.9% 1000 ml IV at bolus once ordered. ck7 19:39 Amylase Ordered. EDMS 19:39 Basic Metabolic Profile Ordered. EDMS 19:39 CBC with Diff Ordered. EDMS 19:39 Lipase Ordered. EDMS 19:39 Liver Profile Ordered. EDMS 19:40 NOTHING BY MOUTH+DIET ordered. EDMS 19:43 Financial registration complete. gjb 19:45 CT ABD & PELVIS: IV Contrast Only Ordered. EDMS 19:46 [facility] [place] Payment Agreement was scanned into [employer] and attached to record. gjb 19:56 ketorolac 30 mg IVP once ordered. ck7 20:48 Basic Metabolic Profile Reviewed. ck7 20:48 CBC with Diff Reviewed. ck7 20:48 Amylase Reviewed. ck7 20:48 Lipase Reviewed. ck7 20:48 Liver Profile Reviewed. ck7 21:47 CT ABD & PELVIS: IV Contrast Only Reviewed. ck7 22:03 traMADol 50mg- 4 pack 1 packets PO Per package directions; Dispense with patient. Take ck7 per package instructions. ordered. 12/16 09:41 T-Sheet-- Draft Copy was scanned into [employer] and attached to record. 09:41 Radiology Report was scanned into [employer] and attached to record. Point of Care Testing: Urine : 12/15 19:13 hCG Reading: Negative; Control Reading: Positive; ar3 Ranges: Administered Medications: 20:04 Drug: NS 0.9% 1000 ml [sodium chloride 0.9 % intravenous solution] Route: IV; Rate: jmb bolus; Site: left antecubital; 20:09 Drug: ketorolac 30 mg [ketorolac 30 mg/mL (1 mL) injection solution (1 mL)] Route: IVP; jmb Site: left antecubital; Signatures: Dispatcher [employer] Neris Neri, Pebbles Andre RN, Reg Reg gb Pritesh Dunn, CODY-C RPA-Cck7 Srini Michel RN RN jmb Beck, Gabriela gjb The chart was reviewed and I authenticate all verbal orders and agree with the evaluation and treatment provided.Attachments: 19:46 [facility] Payment Agreement [email or web address] 12/16 09:41 T-Sheet-- Draft Copy gb Chart Complete MTDD
== END 2016-12-15 22:19 | disposition home or self-care (01) ==
LOC: M ED 18:11
DX: R10.30 Lower abdominal pain, unspecified (principal); K82.9 Disease of gallbladder, unspecified; Z79.899 Other long term (current) drug therapy
CPT/HCPCS: 36415; 74177; 80048; 80076; 81001; 81025; 82150; 83690; 85025; 87086; 96374; 99284; J1885; Q9967

== ENCOUNTER → 2016-12-27 | Outpatient (REF) | payer OTHER | LOC: M SFHCLERA 10:56 | PROVIDERS: ATTEND Nurse Practitioner Family | DX: R30.0 Dysuria (principal) | CPT/HCPCS: 87086; G0463 ==

== ENCOUNTER 2017-07-15 07:30 | Outpatient (RCR) | payer OTHER | END 2017-07-16 | LOC: M PT 07:30 | PROVIDERS: ATTEND Podiatrist | DX: Z51.89 Encounter for other specified aftercare (principal); M72.2 Plantar fascial fibromatosis ==

== ENCOUNTER 2017-08-07 07:00 | Outpatient (RCR) | payer OTHER | END 2017-08-15 | LOC: M PT 07:00 | PROVIDERS: ATTEND Podiatrist | DX: Z51.89 Encounter for other specified aftercare (principal); M72.2 Plantar fascial fibromatosis ==

== ENCOUNTER 2017-09-14 07:00 | Outpatient (RCR) | payer OTHER | END 2017-09-15 | LOC: M PT 07:00 | PROVIDERS: ATTEND Podiatrist | DX: Z51.89 Encounter for other specified aftercare (principal); M72.2 Plantar fascial fibromatosis ==

== ENCOUNTER 2017-10-12 07:00 | Outpatient (RCR) | payer OTHER | END 2017-10-15 | LOC: M PT 07:00 | PROVIDERS: ATTEND Podiatrist | DX: Z51.89 Encounter for other specified aftercare (principal); M72.2 Plantar fascial fibromatosis ==

== ENCOUNTER 2017-10-16 08:28 | Outpatient (RCR) | payer OTHER | END 2017-11-15 | LOC: M PT 10-19 07:00 | DX: Z51.89 Encounter for other specified aftercare (principal); M72.2 Plantar fascial fibromatosis | CPT/HCPCS: 97010 ==

== ENCOUNTER 2017-11-25 13:49 | Outpatient (RCR) | payer OTHER | END 2017-12-16 | LOC: M PT 13:49 | DX: Z51.89 Encounter for other specified aftercare (principal); M72.2 Plantar fascial fibromatosis | CPT/HCPCS: 97010 ==

== ENCOUNTER 2017-12-17 07:51 | Outpatient (RCR) | payer OTHER | END 2018-01-13 | LOC: M PT 12-22 14:45 | DX: Z51.89 Encounter for other specified aftercare (principal); M72.2 Plantar fascial fibromatosis ==

== ENCOUNTER 2018-01-27 13:08 | Outpatient (RCR) | payer OTHER | END 2018-02-13 | LOC: M PT 02-05 09:15 | DX: Z51.89 Encounter for other specified aftercare (principal); M72.2 Plantar fascial fibromatosis | CPT/HCPCS: 97010 ==

== ENCOUNTER 2018-02-17 08:01 | Outpatient (RCR) | payer OTHER | END 2018-03-15 | LOC: M PT 08:01 | DX: Z51.89 Encounter for other specified aftercare (principal); M72.2 Plantar fascial fibromatosis | CPT/HCPCS: 97010 ==